=== PATIENT | female | born 1975 | race Caucasian/White ===

== ENCOUNTER 2017-04-13 01:05 | Emergency (ER) | payer BC, OTHER ==
[~2017-04-13] VITALS: Ht 165.1 cm; Wt 113.4 kg
[2017-04-13 01:30] LABS: Urine RBC None Seen /hpf (0 - 4)
[2017-04-13 01:38] LABS: Urine Bilirubin Negative (Negative); Urine Blood Negative /uL (Negative); Urine Color Yellow (Yellow); Urine Glucose Normal (Normal); Urine Ketone Negative (Negative); Urine Mucus FEW (None Seen); Urine Nitrite Negative (Negative); Urine Squamous Epithelial Cell FEW /hpf (<5); Urine Urobilinogen Normal (Negative)
[2017-04-13 01:43] LABS: Basophils # (auto) 0.1 uL; Basophils % (auto) 1.1 % (0.0-2.0); Eosinophils # (auto) 0.5 uL; Eosinophils % (auto) 4.4 % (0.0-7.0); Hemoglobin 13.4 g/dL (12.2-16.2); Lymphocytes # (auto) 2.6 uL; Mean Corpuscular Hemoglobin 28.4 pg (28.0-32.0); Mean Corpuscular Hgb Conc. 33.6 g/dL (32.0-36.0); Mean Corpuscular Volume 84.6 fL (80.0-100.0); Mean Platelet Volume 7.4 fL (6.9-10.8); Monocytes # (auto) 0.7 uL; Monocytes % (auto) 6.3 % (0.0-12.0); Neutrophils # (auto) 7.5 uL; Neutrophils % (auto) 65.2 % (37.0-80.0); Nucleated Red Blood Cells % 0.1 %; Platelet Count (auto) 325 10^3/uL (140-450); Red Cell Distribution Width 13.5 % (11.8-14.3); White Blood Cell 11.5 10^3/uL (4.4-10.8)
[2017-04-13 02:01] LABS: Albumin 3.4 g/dL (3.4-5.0); BUN/Creatinine Ratio 19.8; Calcium 8.3 mg/dL (8.5-10.1); Potassium 4.3 mmol/L (3.5-5.1)
[2017-04-13 02:10] LABS: Bilirubin, Total 0.3 mg/dL (0.2-1.0); Total Protein 7.6 g/dL (6.4-8.2)
[2017-04-13] MEDS ORDERED: KETOROLAC TROMETH 60MG/2ML VIAL IM ONE (08:00)
[2017-04-13 08:27] VITALS: BP 142/79
== END 2017-04-13 09:29 | disposition home or self-care (01) ==
LOC: ER 01:07
DX: R10.31 Right lower quadrant pain (principal); Z90.710 Acquired absence of both cervix and uterus
CPT/HCPCS: 36415; 74176; 80053; 81001; 82150; 83690; 85025; 96372; 99285; J1885

== ENCOUNTER 2019-03-09 02:41 | Emergency (ER) | payer BC ==
[~2019-03-09] VITALS: Ht 165.1 cm; Wt 106.6 kg
[2019-03-09] MEDS ORDERED: ONDANSETRON HCL 4 MG/2 ML VIAL IV ONE (03:00)
[2019-03-09] MEDS ORDERED: MORPHINE SULFATE 4 MG/ML SYR/VIAL IV ONE (03:00)
[2019-03-09] MEDS ORDERED: SODIUM CHLORIDE 0.9% 1,000 ML IV ONE (07:00)
[2019-03-09 08:02] LABS: Basophils # (auto) 0.1 uL; Basophils % (auto) 0.8 % (0.0-2.0); Eosinophils # (auto) 0.1 uL; Eosinophils % (auto) 1.1 % (0.0-7.0); Hematocrit 39.7 % (36.0-46.0); Hemoglobin 13.3 g/dL (12.2-16.2); Lymphocytes # (auto) 2.5 uL; Lymphocytes % (auto) 22.4 % (10.0-50.0); Mean Corpuscular Hemoglobin 28.8 pg (28.0-32.0); Mean Corpuscular Hgb Conc. 33.6 g/dL (32.0-36.0); Mean Corpuscular Volume 85.8 fL (80.0-100.0); Monocytes # (auto) 0.7 uL; Monocytes % (auto) 6.1 % (0.0-12.0); Neutrophils # (auto) 7.9 uL; Neutrophils % (auto) 69.6 % (37.0-80.0); Nucleated Red Blood Cells % 0.1 %; Platelet Count (auto) 323 10^3/uL (140-450); Red Blood Cells 4.63 10^6/uL (4.0-5.20); Red Cell Distribution Width 13.2 % (11.8-14.3); White Blood Cell 11.3 10^3/uL (4.4-10.8)
[2019-03-09 08:11] LABS: INR < 0.93 (0.9-1.15)
[2019-03-09 08:13] LABS: Albumin 3.7 g/dL (3.4-5.0); Anion Gap 9 (5-15); Blood Urea Nitrogen 14 mg/dL (7-18); Calcium 8.2 mg/dL (8.5-10.1); Carbon Dioxide 23 mmol/L (21-32); Chloride 109 mmol/L (98-107); Glucose 99 mg/dL (74-106); Potassium 4.3 mmol/L (3.5-5.1); Sodium 141 mmol/L (136-145)
[2019-03-09 08:15] LABS: Alanine Aminotransferase 30 U/L (13-56); Aspartate Aminotransferase 14 U/L (15-37); BUN/Creatinine Ratio 17.9; GFR African American 104 mL/min; GFR Non-African American 86 mL/min
[2019-03-09 08:19] LABS: Alkaline Phosphatase 94 U/L (45-117); Bilirubin, Total 0.4 mg/dL (0.2-1.0); Total Protein 7.6 g/dL (6.4-8.2)
[2019-03-09 08:27] LABS: Urine Bacteria FEW /hpf (None Seen); Urine Blood Negative /uL (Negative); Urine Specific Gravity 1.007 (1.001-1.035); Urine WBC <1 /hpf (0 - 5)
[2019-03-09 08:44] VITALS: BP 103/83
== END 2019-03-09 09:32 | disposition home or self-care (01) ==
LOC: ER 02:41
DX: E86.0 Dehydration (principal)
CPT/HCPCS: 36415; 74176; 80053; 81001; 84484; 85025; 85610; 96361; 96374; 96375; 99284; J2270; J2405; J7030

== ENCOUNTER 2022-10-04 16:35 | Inpatient (IN) | payer BC ==
[~2022-10-04] VITALS: Ht 165.1 cm; Wt 130.0 kg
[2022-10-04] MEDS ORDERED: HYDROmorphone HCL 2 MG/ML VL/or syr IV ONE ×2 (17:30→19:00)
[2022-10-04] MEDS ORDERED: ONDANSETRON HCL 4 MG/2 ML VIAL IV ONE ×2 (17:30→19:00)
[2022-10-04 19:39] LABS: Basophils # (auto) 0 10 ^3/uL (0-0.2); Basophils % (auto) 0.1 % (0.0-2.0); Eosinophils # (auto) 0 10 ^3/uL (0-0.8); Eosinophils % (auto) 0.1 % (0.0-7.0); Hematocrit 39.9 % (36.0-46.0); Hemoglobin 12.9 g/dL (12.2-16.2); Lymphocytes # (auto) 1.5 10 ^3/uL (0.4-5.4); Lymphocytes % (auto) 8.1 % (10.0-50.0); Mean Corpuscular Hemoglobin 27.6 pg (28.0-32.0); Mean Corpuscular Hgb Conc. 32.4 g/dL (32.0-36.0); Mean Corpuscular Volume 85.2 fL (80.0-100.0); Monocytes # (auto) 0.8 10 ^3/uL (0-1.3); Monocytes % (auto) 4.5 % (0.0-12.0); Neutrophils # (auto) 15.8 10 ^3/uL (1.6-8.6); Neutrophils % (auto) 87.2 % (37.0-80.0); Red Blood Cells 4.69 10^6/uL (4.0-5.20); Red Cell Distribution Width 13.6 % (11.8-14.3); White Blood Cell 18.2 10^3/uL (4.4-10.8)
[2022-10-04 20:07] LABS: INR 1.02 (0.9-1.15)
[2022-10-04 20:23] LABS: Albumin 3.7 g/dL (3.4-5.0); Calcium 8.6 mg/dL (8.5-10.1); Potassium 4.2 mmol/L (3.5-5.1)
[2022-10-04 20:25] LABS: BUN/Creatinine Ratio 19.5 (10.0-20.0)
[2022-10-04 20:28] LABS: Bilirubin, Total 0.6 mg/dL (0.2-1.0); Total Protein 7.6 g/dL (6.4-8.2)
[2022-10-04] MEDS: ONDANSETRON HCL 4 MG/2 ML VIAL IV PRN (22:13)
[2022-10-04] MEDS: MORPHINE SULFATE INJ 2 MG/ml SYRG IV PRN (22:14)
[2022-10-04] MEDS: SODIUM CHLORIDE 0.9% 1,000 ML IV SCH (22:43)
[2022-10-05] MEDS: ONDANSETRON HCL 4 MG/2 ML VIAL IV PRN ×3 (02:35→21:25)
[2022-10-05] MEDS: MORPHINE SULFATE INJ 2 MG/ml SYRG IV PRN ×2 (02:36→07:42)
[2022-10-05] MEDS ORDERED: MORPHINE SULFATE 4 MG/ML SYR/VIAL IV ONE (03:00)
[2022-10-05 04:59] LABS: Basophils # (auto) 0 10 ^3/uL (0-0.2); Basophils % (auto) 0.3 % (0.0-2.0); Eosinophils # (auto) 0 10 ^3/uL (0-0.8); Eosinophils % (auto) 0.3 % (0.0-7.0); Hematocrit 35.5 % (36.0-46.0); Hemoglobin 11.7 g/dL (12.2-16.2); Lymphocytes % (auto) 20.8 % (10.0-50.0); Mean Corpuscular Hemoglobin 27.9 pg (28.0-32.0); Mean Corpuscular Hgb Conc. 32.9 g/dL (32.0-36.0); Mean Corpuscular Volume 84.8 fL (80.0-100.0); Monocytes # (auto) 0.8 10 ^3/uL (0-1.3); Monocytes % (auto) 7.9 % (0.0-12.0); Neutrophils # (auto) 6.9 10 ^3/uL (1.6-8.6); Neutrophils % (auto) 70.7 % (37.0-80.0); Nucleated Red Blood Cells % 0.2 %; Red Blood Cells 4.19 10^6/uL (4.0-5.20); Red Cell Distribution Width 13.8 % (11.8-14.3); White Blood Cell 9.8 10^3/uL (4.4-10.8)
[2022-10-05 05:42] LABS: Albumin 3.4 g/dL (3.4-5.0); BUN/Creatinine Ratio 17.4 (10.0-20.0); Bilirubin, Total 0.7 mg/dL (0.2-1.0); Calcium 7.8 mg/dL (8.5-10.1); Total Protein 6.6 g/dL (6.4-8.2)
[2022-10-05] MEDS: SODIUM CHLORIDE 0.9% 1,000 ML IV SCH ×2 (11:40→21:32)
[2022-10-05] MEDS: MORPHINE SULFATE 4 MG/ML SYR/VIAL IV PRN ×4 (12:06→21:28)
[2022-10-05 18:29] VITALS: BP 109/52
[2022-10-05 22:00] VITALS: BP 109/52
[2022-10-06] MEDS ORDERED: ALPR0.5T PO (00:44)
[2022-10-06] MEDS: ONDANSETRON HCL 4 MG/2 ML VIAL IV PRN ×3 (03:36→21:08)
[2022-10-06] MEDS: MORPHINE SULFATE 4 MG/ML SYR/VIAL IV PRN ×3 (03:45→21:18)
[2022-10-06 05:00] VITALS: BP 115/67
[2022-10-06 05:30] LABS: Urine Bacteria NONE SEEN /hpf (None Seen); Urine Blood TRACE /uL (Negative); Urine Mucus FEW (None Seen); Urine Specific Gravity 1.018 (1.001-1.035); Urine WBC 4 /hpf (0 - 5)
[2022-10-06 07:39] LABS: INR 0.96 (0.9-1.15); Partial Thromboplastin Time 30.1 sec (24.6-33.4)
[2022-10-06 08:00] VITALS: BP 123/73
[2022-10-06 12:00] VITALS: BP 110/65
[2022-10-06] MEDS ORDERED: ceFAZolin 1GM/50ML 100 ML IV ONE (13:37)
[2022-10-06] MEDS: SODIUM CHLORIDE 0.9% 1,000 ML IV SCH (13:45)
[2022-10-06] MEDS ORDERED: fentaNYL CITRATE 100 MCG/2 ML VL ONE (13:52)
[2022-10-06] MEDS ORDERED: HYDROmorphone HCL 2 MG/ML VL/or syr ONE (13:52)
[2022-10-06] MEDS ORDERED: MIDAZOLAM HCL 2MG/2ML 2ml VIAL (1mg/ml) ONE (13:53)
[2022-10-06] MEDS ORDERED: LIDOCAINE 2% JELLY 11ml (GLYDO) ONE (14:12)
[2022-10-06] MEDS ORDERED: HYDROmorphone HCL 2 MG/ML VL/or syr IV PRN (16:45)
[2022-10-06] MEDS: LACTATED RINGER'S 1,000 ML IV SCH (16:45)
[2022-10-06] MEDS ORDERED: KETOROLAC TROMETH 30 MG/ML 1ML VIAL IV ONE ×2 (16:45→17:50)
[2022-10-06] MEDS ORDERED: LABETALOL HCL 5 MG/ML 4ML SYRINGE IV PRN (16:45)
[2022-10-06] MEDS ORDERED: KETOROLAC TROMETH 30 MG/ML 1ML VIAL IV SCH (16:45)
[2022-10-06] MEDS ORDERED: ONDANSETRON HCL 4 MG/2 ML VIAL IV PRN (16:45)
[2022-10-06] MEDS: ceFAZolin 1GM/50ML 50 ML IV SCH ×2 (16:45→22:46)
[2022-10-06] MEDS ORDERED: ePHEDrine SULFATE 50 MG/ML AMP IV PRN (16:45)
[2022-10-06] MEDS ORDERED: MORPHINE SULFATE 4 MG/ML SYR/VIAL IV PRN (16:45)
[2022-10-06] MEDS ORDERED: MIDAZOLAM HCL 2MG/2ML 2ml VIAL (1mg/ml) IV PRN (16:45)
[2022-10-06] MEDS ORDERED: HYDROmorphone HCL 2 MG/ML VL/or syr IV ONE ×4 (17:06→17:36)
[2022-10-06 19:31] LABS: Calcium 7.3 mg/dL (8.5-10.1); Potassium 4.2 mmol/L (3.5-5.1)
[2022-10-06 20:02] LABS: BUN/Creatinine Ratio 14.7 (10.0-20.0)
[2022-10-06 22:00] VITALS: BP 133/72
[2022-10-06] MEDS: DOCUSATE SOD 100 MG CAP PO SCH (22:46)
[2022-10-07] MEDS: MORPHINE SULFATE 4 MG/ML SYR/VIAL IV PRN ×8 (00:51→22:15)
[2022-10-07] MEDS: ONDANSETRON HCL 4 MG/2 ML VIAL IV PRN (01:25)
[2022-10-07] MEDS: LACTATED RINGER'S 1,000 ML IV SCH ×3 (03:29→22:45)
[2022-10-07] MEDS: SODIUM CHLORIDE 0.9% 1,000 ML IV SCH ×2 (03:29→04:27)
[2022-10-07 05:00] VITALS: BP 126/62
[2022-10-07] MEDS: ceFAZolin 1GM/50ML 50 ML IV SCH (05:03)
[2022-10-07 07:05] LABS: Basophils # (auto) 0 10 ^3/uL (0-0.2); Basophils % (auto) 0.2 % (0.0-2.0); Eosinophils # (auto) 0 10 ^3/uL (0-0.8); Eosinophils % (auto) 0.1 % (0.0-7.0); Hematocrit 30.3 % (36.0-46.0); Hemoglobin 9.9 g/dL (12.2-16.2); Lymphocytes # (auto) 1.8 10 ^3/uL (0.4-5.4); Mean Corpuscular Hemoglobin 27.8 pg (28.0-32.0); Mean Corpuscular Hgb Conc. 32.8 g/dL (32.0-36.0); Mean Corpuscular Volume 84.7 fL (80.0-100.0); Monocytes # (auto) 1.1 10 ^3/uL (0-1.3); Monocytes % (auto) 7.8 % (0.0-12.0); Neutrophils # (auto) 11.1 10 ^3/uL (1.6-8.6); Neutrophils % (auto) 78.9 % (37.0-80.0); Red Blood Cells 3.58 10^6/uL (4.0-5.20); Red Cell Distribution Width 13.2 % (11.8-14.3)
[2022-10-07 09:00] VITALS: BP 123/64
[2022-10-07] MEDS: DOCUSATE SOD 100 MG CAP PO SCH ×2 (09:36→22:15)
[2022-10-07 13:00] VITALS: BP 140/77
[2022-10-07 16:41] VITALS: BP 128/66
[2022-10-07 20:20] VITALS: BP 125/65
[2022-10-07 22:00] VITALS: BP 125/65
[2022-10-08] MEDS: MORPHINE SULFATE 4 MG/ML SYR/VIAL IV PRN ×3 (01:09→07:10)
[2022-10-08 05:00] VITALS: BP 132/61
[2022-10-08] MEDS: SODIUM CHLORIDE 0.9% 1,000 ML IV SCH ×3 (05:45→21:06)
[2022-10-08] MEDS: LACTATED RINGER'S 1,000 ML IV SCH ×2 (08:45→17:37)
[2022-10-08 08:49] VITALS: BP 137/75
[2022-10-08] MEDS: HYDROcodone-ACET 10/325MG TAB PO PRN ×3 (10:24→19:41)
[2022-10-08] MEDS: DOCUSATE SOD 100 MG CAP PO SCH ×2 (10:24→21:06)
[2022-10-08 12:57] VITALS: BP 130/60
[2022-10-08 17:05] VITALS: BP 124/71
[2022-10-08 20:15] VITALS: BP 141/72
[2022-10-08 22:00] VITALS: BP 141/72
[2022-10-09] MEDS: HYDROcodone-ACET 10/325MG TAB PO PRN ×4 (00:01→14:45)
[2022-10-09] MEDS: LACTATED RINGER'S 1,000 ML IV SCH ×2 (04:45→13:40)
[2022-10-09 05:00] VITALS: BP 125/67
[2022-10-09 09:00] VITALS: BP 104/41
[2022-10-09] MEDS ORDERED: POLYETHYLENE GLYCOL 17 GM PWDR PO ONE (10:15)
[2022-10-09] MEDS: DOCUSATE SOD 100 MG CAP PO SCH (10:15)
[2022-10-09] MEDS ORDERED: HYDR-4798 PO ×2 (10:56→15:54)
[2022-10-09] MEDS ORDERED: POLY33504 PO (10:56)
[2022-10-09] MEDS ORDERED: DOCU100C10 PO (10:56)
[2022-10-09] MEDS ORDERED: APIX5TAB PO (11:00)
[2022-10-09 13:00] VITALS: BP 120/71
[2022-10-10] MEDS ORDERED: POLYETHYLENE GLYCOL 17 GM PWDR PO SCH (10:00)
== END 2022-10-09 16:10 | disposition home or self-care (01) | DRG 493 ==
LOC: ER 16:35 → EDBD 16:35 → OVERFLOW 21:46 → CENTRAL 10-05 18:32
PROVIDERS: ADMIT Nurse Practitioner; ATTEND Internal Medicine
PROC: 0QSG36Z Reposition Right Tibia with Intramedullary Internal Fixation Device, Percutaneous Approach (ICD-10-PCS; principal; 2022-10-06 14:08)
DX: S82.201A Unspecified fracture of shaft of right tibia, initial encounter for closed fracture (principal); Z68.42 Body mass index [BMI] 45.0-49.9, adult; D72.829 Elevated white blood cell count, unspecified; E66.01 Morbid (severe) obesity due to excess calories; S82.401A Unspecified fracture of shaft of right fibula, initial encounter for closed fracture; F41.9 Anxiety disorder, unspecified; Y93.52 Activity, horseback riding; W55.19XA Other contact with horse, initial encounter; Z80.3 Family history of malignant neoplasm of breast; Z90.710 Acquired absence of both cervix and uterus; Y92.89 Other specified places as the place of occurrence of the external cause; Y99.8 Other external cause status
CPT/HCPCS: 36415; 71045; 72131; 73590; 73600; 76000; 80048; 80053; 81001; 85025; 85610; 85730; 86850; 86900; 86901; 96374; 96375; 96376; 97110; 97116; 97163; G0378; J0690; J1885; J2250; J2405